=== PATIENT | female | born 1940 | race African-American/Black ===

== ENCOUNTER 2019-07-21 08:46 | Emergency (ER) | payer OTHER ==
[~2019-07-21] VITALS: Ht 170.2 cm; Wt 72.0 kg
[2019-07-21 08:48] VITALS: BP 0/0
[2019-07-21] MEDS ORDERED: NOREPINEPHRINE 4MG/250ML PMX 250 ML IV ONE ×2 (09:00→10:00)
== END 2019-07-21 09:05 | disposition expired ==
LOC: ER 09:03
DX: I46.9 Cardiac arrest, cause unspecified (principal); R11.10 Vomiting, unspecified; R45.1 Restlessness and agitation; I10 Essential (primary) hypertension
CPT/HCPCS: 92950; 99285; J3490